=== PATIENT | female | born 1975 | race Two or more races ===

== ENCOUNTER → 2019-01-28 | Outpatient (CLI) | payer OTHER, SELFPAY ==
[2019-02-05 16:21] LABS: HPV Reflexed? NOT INDICATED
== END | disposition home or self-care (01) ==
LOC: LABSPEC 13:38
PROVIDERS: Visit Provider Obstetrics & Gynecology
DX: Z12.4 Encounter for screening for malignant neoplasm of cervix (principal)
CPT/HCPCS: 88175; G0145

== ENCOUNTER → 2021-12-05 | Outpatient (CLI) | payer OTHER, SELFPAY ==
[2021-12-12 15:37] LABS: HPV APTIMA, High Risk Negative (Negative)
== END | disposition home or self-care (01) ==
LOC: LABSPEC 16:25
PROVIDERS: Visit Provider Obstetrics & Gynecology
DX: Z12.4 Encounter for screening for malignant neoplasm of cervix (principal)
CPT/HCPCS: 87624; 88175; G0145